=== PATIENT | male | born 1940 | race Caucasian/White ===

== ENCOUNTER 2016-07-24 08:47 | Emergency (ER) | payer OTHER ==
[2016-07-24 08:55] VITALS: TEMP 97.7
--- NOTE | 2016-07-24 09:06 | CPEKG ---
Heart Rate: 102 RR Interval: 588 QRSD Interval: 88 QT Interval: 344 QTC Interval: 449 QRS [place]: 26 T Wave [place]: 15 EKG Severity - ABNORMAL ECG - EKG Impression: ATRIAL FIBRILLATION, V-RATE 73-135 Electronically Signed By: Connor Lofton 24-Jul-2016 15:46:16
[2016-07-24 10:04] LABS: % IMMATURE GRANULYOCYTES 0.3 % (0.0-1.1); ABSOLUTE IMMATURE GRANULOCYTES 0.02 10^3/uL (0.00-0.10); ADD DIFF? NO; ADD MORPH? NO; ADD SCAN? NO; ATYPICAL LYMPHOCYTE FLAG 0 (0-99); FRAGMENT RBC FLAG 0 (0-99); HEMATOCRIT 45.6 % (40.0-51.0); HEMOGLOBIN 15.5 g/dL (13.7-17.5); LEFT SHIFT FLG 0 (0-99); LIPEMIA HEMOLYSIS FLAG 90 (0-99); MEAN CELL HEMOGLOBIN 31.8 pg (27.9-34.1); MEAN CELL VOLUME 93.6 fL (81.5-99.8); MEAN PLATELET VOLUME 10.5 fL (8.7-11.7); PLATELET CLUMPS FLAG 0 (0-99); PLATELET COUNT 204 10^3/uL (150-400); RED BLOOD CELL COUNT 4.87 10^6/uL (4.40-6.38)
[2016-07-24 10:09] LABS: INR 2.7 (0.83-1.16)
[2016-07-24 10:10] LABS: ANION GAP 12 mEq/L (8-16); APTT 40.8 SEC (23.0-38.0); CALCIUM 8.9 mg/dL (8.5-10.4); CARBON DIOXIDE 24 mEq/l (22-31); CHLORIDE 107 mEq/L (97-110); CREATININE 0.9 mg/dL (0.7-1.3); GLOMERULAR FILTRATION RATE > 60; GLUCOSE 114 mg/dL (70-100); POTASSIUM 4.1 mEq/L (3.5-5.2); SODIUM 143 mEq/L (134-144)
--- NOTE | 2016-07-24 10:11 | EDPHY ---
H & P Stated Complaint: CP this am, now lightheaded, hx a fib Time Seen by Provider: 07/24/16 09:16 HPI/ROS: CHIEF COMPLAINT: Dizziness, palpitations, chest pressure HISTORY OF PRESENT ILLNESS: The patient has a history of atrial fibrillation. He presents to the ED with several complaints. He has had intermittent mild chest pressure occurring sporadically over the past day. This morning he had a sensation of palpitations and associated vertigo. The patient reported that it was brief and self-limited. He had no associated numbness or weakness. The patient presents to the emergency department for further evaluation. He has had atrial fibrillation since 2014. Patient is currently taking 180 mg of diltiazem and is anticoagulated with warfarin. The patient reports he has no history of coronary artery disease. He has had dyspnea on exertion and general fatigue over the past several months with his atrial fibrillation. The patient reportedly did undergo a 48 hour Holter monitor which demonstrated the persistence of atrial fibrillation. The patient currently denies any additional complaints of fever, cough, congestion or dysuria. REVIEW OF SYSTEMS: A comprehensive 10 point review of systems is otherwise negative aside from elements mentioned in the history of present illness. Source: Patient Exam Limitations: No limitations - Personal History Current Tetanus/Diphtheria Vaccine: Unsure Current Tetanus Diphtheria and Acellular Pertussis (TDAP): Unsure - Medical/Surgical History Hx Asthma: No Hx Chronic Respiratory Disease: No Hx Diabetes: No Hx Cardiac Disease: Yes Hx Renal Disease: No Hx Cirrhosis: No Hx Alcoholism: No Hx HIV/AIDS: No Hx Splenectomy or Spleen Trauma: No Other PMH: a fib. BPH. htn. sleep apnea - Social History Smoking Status: Never smoked - Physical Exam Exam: General Appearance: Alert, no distress Eyes: Pupils equal and round no pallor or injection ENT, Mouth: Mucous membranes moist Respiratory: There are no retractions, lungs are clear to auscultation Cardiovascular: Irregular rate, 2/6 systolic ejection murmur Gastrointestinal: Abdomen is soft and nontender, no masses, bowel sounds normal Neurological: A&O, normal motor function, normal sensory exam, normal cranial nerves Skin: Warm and dry, no rashes Musculoskeletal: Neck is supple nontender Extremities: symmetrical, full range of motion Constitutional: Initial Vital Signs Temperature (C) 36.5 C 07/24/16 08:51 Heart Rate 104 H 07/24/16 08:51 Respiratory Rate 16 07/24/16 08:51 Blood Pressure 160/109 H 07/24/16 08:51 O2 Sat (%) 95 07/24/16 08:51 O2 Delivery Mode Room Air Allergies/Adverse Reactions: No Known Allergies Allergy (Unverified 12/03/14 12:36) Home Medications: Medication Instructions Recorded Atorvastatin Calcium 07/24/16 Diltiazem 07/24/16 Pepcid 07/24/16 Prozac 10 MG (*) 07/24/16 Tamsulosin HCl 07/24/16 Warfarin Sodium 07/24/16 Medical Decision Making - Diagnostics EKG Interpretation: EKG: Complete interpretation has been separately recorded in the [facility] archive. Summary impression: Atrial fibrillation, no ischemic changes noted Imaging Results: Imaging Impressions Chest X-Ray 07/24/16 09:59 Impression: Left costophrenic angle blunting. Otherwise negative. ED Course/Re-evaluation: I reviewed the patient's past medical records. His EKG demonstrates rate controlled atrial fibrillation without ischemic changes. The patient has a normal troponin. The patient was monitored in the ED for 2.5 hours without evidence of recurrent arrhythmia. The patient's laboratory studies are within normal limits. The patient did undergo 3 serial examinations by myself without recurrent chest pain. Discussion: The patient presents to the ED after an episode of palpitations. It is certainly possible he had rapid atrial fibrillation earlier today but we have see no evidence of that today he is currently anticoagulated and on diltiazem. The patient has no history of coronary artery disease. He did have some very mild atypical chest pain over the past day. He does understand that we have not fully exclude the possibility of acute coronary syndrome but he would prefer to go home and follow up with his appeals specialist within 72 hours. The patient does understand return to the ED immediately for any recurrent chest pain, shortness of breath or other concerns. He will also return to the ED for significant palpitations or arrhythmia. Differential Diagnosis: Differential diagnosis considered includes acute coronary syndrome, pulmonary embolism, myocardial infarction, rapid atrial fibrillation, congestive heart failure, pneumothorax - Data Points Laboratory Results: Laboratory Results 07/24/16 09:12 07/24/16 09:12 07/24/16 07/24/16 07/24/16 09:12 09:12 09:12 WBC 6.26 10^3/uL 10^3/uL (3.80-9.50) RBC 4.87 10^6/uL 10^6/uL (4.40-6.38) Hgb 15.5 g/dL g/dL (13.7-17.5) Hct 45.6 % % (40.0-51.0) MCV 93.6 fL fL (81.5-99.8) MCH 31.8 pg pg (27.9-34.1) MCHC 34.0 g/dL g/dL (32.4-36.7) RDW 14.0 % % (11.5-15.2) Plt Count 204 10^3/uL 10^3/uL (150-400) MPV 10.5 fL fL (8.7-11.7) Neut % (Auto) 69.6 % % (39.3-74.2) Lymph % (Auto) 20.0 % % (15.0-45.0) [place] % (Auto) 7.8 % % (4.5-13.0) Eos % (Auto) 1.3 % % (0.6-7.6) Baso % (Auto) 1.0 % % (0.3-1.7) Nucleat RBC Rel Count 0.0 % % (0.0-0.2) Absolute Neuts (auto) 4.36 10^3/uL 10^3/uL (1.70-6.50) Absolute Lymphs (auto) 1.25 10^3/uL 10^3/uL (1.00-3.00) Absolute Monos (auto) 0.49 10^3/uL 10^3/uL (0.30-0.80) Absolute Eos (auto) 0.08 10^3/uL 10^3/uL (0.03-0.40) Absolute Basos (auto) 0.06 10^3/uL 10^3/uL (0.02-0.10) Absolute Nucleated RBC 0.00 10^3/uL 10^3/uL (0-0.01) Immature Gran % 0.3 % % (0.0-1.1) Immature Gran # 0.02 10^3/uL 10^3/uL (0.00-0.10) PT 29.0 SEC H SEC (12.0-15.0) INR 2.70 H (0.83-1.16) APTT 40.8 SEC H SEC (23.0-38.0) Sodium 143 mEq/L mEq/L (134-144) Potassium 4.1 mEq/L mEq/L (3.5-5.2) Chloride 107 mEq/L mEq/L (97-110) Carbon Dioxide 24 mEq/l mEq/l (22-31) Anion Gap 12 mEq/L mEq/L (8-16) BUN 15 mg/dL mg/dL (7-23) Creatinine 0.9 mg/dL mg/dL (0.7-1.3) Estimated GFR > 60 Glucose 114 mg/dL H mg/dL (70-100) Calcium 8.9 mg/dL mg/dL (8.5-10.4) Troponin I < 0.012 ng/mL ng/mL (0-0.034) Departure - Departure Disposition: Home, Routine, Self-Care Clinical Impression: Chest pain, Atrial fibrillation Condition: Good Instructions: Chest Pain (ED) Additional Instructions: 1. Based upon the testing done in the Emergency Department today we see no evidence of a heart attack. 2. We are unable to fully exclude coronary artery disease based upon the testing available in the Emergency Department. 3. For this reason, we would like you to be seen by cardiology for consideration of additional testing within the next 3 days. 4. Please contact the appeals specialist you have been referred to schedule this appointment as soon as possible. Their offices are typically open from 8:30am- 5pm M-F. 5. Please return to the Emergency Department immediately for any recurrent chest pain, difficulty breathing or other concerns. Referrals: Bakari Omer MD [Medical Doctor] - As per Instructions
[2016-07-24 10:21] LABS: TROPONIN I < 0.012 ng/mL (0-0.034)
[2016-07-24 11:47] VITALS: BP 147/107; PULSE 91; RESP 16; O2SAT 94
== END 2016-07-24 11:47 | disposition home or self-care (01) ==
DX: I48.91 Unspecified atrial fibrillation (principal); I10 Essential (primary) hypertension; Z79.01 Long term (current) use of anticoagulants

== ENCOUNTER 2016-09-23 07:12 | Day surgery (SDC) | payer OTHER ==
[2016-09-23] MEDS ORDERED: PROPOFOL 200 MG/20 ML VIAL IVP ONE (07:15)
[2016-09-23] MEDS ORDERED: NS 500 ML IV ONE (07:15)
[2016-09-23] MEDS ORDERED: MIDAZOLAM 2 MG/2 ML VIAL IVP ONE (07:15)
[2016-09-23] MEDS ORDERED: fentaNYL 100 MCG/2 ML INJ IVP ONE (07:15)
[2016-09-23] MEDS ORDERED: BENZOCAINE UNIT DOSE SPRAY HURRICAINE MM ONE (07:15)
--- NOTE | 2016-09-23 07:31 | CPEKG ---
Heart Rate: 92 RR Interval: 652 QRSD Interval: 106 QT Interval: 366 QTC Interval: 453 QRS [place]: 33 T Wave [place]: -20 EKG Severity - ABNORMAL ECG - EKG Impression: ATRIAL FIBRILLATION EKG Impression: INCOMPLETE RIGHT BUNDLE BRANCH BLOCK EKG Impression: NON SPECIFIC ST/T WAVE CHANGES Electronically Signed By: Bakari Omer 23-Sep-2016 12:45:56
[2016-09-23] MEDS ORDERED: ATROPINE SULFATE 1 MG/10 ML SYR ONE (07:47)
[2016-09-23] MEDS ORDERED: LIDOCAINE 2% 5 ML SDV ONE (08:13)
[2016-09-23 08:15] LABS: ANION GAP 12 mEq/L (8-16); CALCIUM 8.8 mg/dL (8.5-10.4); CARBON DIOXIDE 21 mEq/l (22-31); CHLORIDE 111 mEq/L (97-110); GLOMERULAR FILTRATION RATE > 60; GLUCOSE 92 mg/dL (70-100); MAGNESIUM 2.1 mg/dL (1.6-2.3); POTASSIUM 4.8 mEq/L (3.5-5.2); SODIUM 144 mEq/L (134-144); SPECIMEN HEMOLYSIS 118
[2016-09-23 08:19] LABS: APTT 43.2 SEC (23.0-38.0); INR 3.03 (0.83-1.16); PROTIME(PATIENT) 31.8 SEC (12.0-15.0)
--- NOTE | 2016-09-23 09:14 | CPEKG ---
Heart Rate: 60 RR Interval: 1000 P-R Interval: 288 QRSD Interval: 100 QT Interval: 436 QTC Interval: 436 P [place]: 46 QRS [place]: 27 T Wave [place]: 18 EKG Severity - ABNORMAL ECG - EKG Impression: SINUS RHYTHM EKG Impression: FIRST DEGREE AV BLOCK EKG Impression: SINUS RHYTHM HAS REPLACED AFIB Electronically Signed By: Bakari Omer 23-Sep-2016 12:46:25
--- NOTE | 2016-09-23 09:20 | EPPROC ---
Electrophysiology Procedure Note: Procedure: CV Indication: AF Procedure: Pt sedated by members of anesthesia staff. Once sedated, NISREEN was performed. (reported separately). Once LA clot ruled out, pt was CV using 200J of DC. Pt successfully converted to SR Conclusion: Successful CV
== END 2016-09-23 10:20 | disposition home or self-care (01) ==
LOC: FCATH 07:12
PROVIDERS: ATTEND Internal Medicine Cardiovascular Disease
PROC: B245ZZ4 Ultrasonography of Left Heart, Transesophageal (ICD-10-PCS; principal; 2016-09-23)
PROC: 5A2204Z Restoration of Cardiac Rhythm, Single (ICD-10-PCS; principal; 2016-09-23)
DX: I48.91 Unspecified atrial fibrillation (principal); I10 Essential (primary) hypertension; G47.33 Obstructive sleep apnea (adult) (pediatric); I08.1 Rheumatic disorders of both mitral and tricuspid valves; E78.5 Hyperlipidemia, unspecified; Z98.1 Arthrodesis status; Z79.01 Long term (current) use of anticoagulants
CPT/HCPCS: J0461; J2704